=== PATIENT | female | born 1950 | race Caucasian/White ===

== ENCOUNTER 2019-08-21 16:46 | Inpatient (IN) | payer MEDICARE, BC ==
--- NOTE | 2019-08-21 18:24 | PCM.HP.2 ---
H&P History of Present Illness - General Date of Service: 08/21/19 Admit Problem/Dx: Admission Diagnosis/Problem Admission Diagnosis/Problem Pneumonia Source of Information: Patient History Limitations: Reports: No Limitations - History of Present Illness Initial Comments - Free Text/Narative: Silvia is a 68-year-old female was seen by Crista Caballero at the clinic yesterday with a cough and fever. She was well until last Saturday when she developed fever sudden onset,along with chills and cough. Yesterday she tested positive for influenza A. She was also mildly hypoxic. This evening she continues to have a dry paroxysmal cough, associated with shortness of breath hypoxia but no fever. A chest x-ray obtained yesterday showed right lower lobe infiltrate. Silvia has a history of obstructive sleep apnea, obesity, depression, May Thurner syndrome, and pulmonary fibrosis. She is on long-term anticoagulation. low back pain Pain Score (Numeric/FACES): 4 H&P Review of Systems - Review of Systems: Review Of Systems: Comprehensive ROS is negative, except as noted in HPI. Exam - Exam Exam: See Below - Vital Signs Vital Signs: Last Vital Signs Temp 98.6 F 08/21/19 17:41 Pulse 88 08/21/19 17:41 Resp 14 08/21/19 17:41 BP 130/77 08/21/19 17:41 Pulse Ox 93 L 08/21/19 17:41 Weight: 107.365 kg - Exam Quality Assessment: Supplemental Oxygen General: Mild Distress HEENT: PERRLA, Hearing Intact, Mucosa Moist & [place], Nares Patent, Normal Nasal Septum, Posterior Pharynx Clear, Conjunctiva Clear, EOMI, EACs Clear, TMs Clear Neck: Supple, Trachea Midline, 2 Lungs: Crackles Cardiovascular: Regular Rate, Regular Rhythm GI/Abdominal Exam: Normal Bowel Sounds, Soft, Non-Tender, No Organomegaly, No Distention, No Abnormal Bruit, No Mass, Pelvis Stable (Female) Exam: Deferred Rectal (Female) Exam: Deferred Back Exam: Normal Inspection, Full Range of Motion, NT Extremities: Normal Inspection, Normal Range of Motion, Non-Tender, No Pedal Edema, Normal Capillary Refill Skin: Warm, Dry, Intact Neurological: Cranial Nerves Intact, Reflexes Equal Bilateral Neuro Extensive - Mental Status: Alert, Oriented x3, Normal Mood/Affect, Normal Cognition Neuro Extensive - Motor, Sensory, Reflexes: CN II-XII Intact, Normal Gait, Normal Reflexes Psychiatric: Alert, Normal Affect, Normal Mood Sepsis Event Note - Evaluation Sepsis Screening Result: No Definite Risk - Focused Exam Vital Signs: Vital Signs Temp Pulse Resp BP Pulse Ox 08/21/19 17:41 98.6 F 88 14 130/77 93 L Date Exam was Performed: 08/21/19 Time Exam was Performed: 18:17 - Problem List (1) CAP (community acquired pneumonia) SNOMED Code(s): 200417169 ICD Code: J18.9 - PNEUMONIA, UNSPECIFIED ORGANISM Status: Acute Current Visit: Yes Qualifiers: Lung location: unspecified part of lung (2) Influenza A SNOMED Code(s): 998946007 ICD Code: J10.1 - FLU DUE TO OTH IDENT INFLUENZA VIRUS W OTH RESP MANIFEST Status: Acute Current Visit: Yes (3) Pulmonary fibrosis SNOMED Code(s): 91158010 ICD Code: J84.10 - PULMONARY FIBROSIS, UNSPECIFIED Status: Acute Current Visit: Yes (4) Obesity SNOMED Code(s): 940742692, 729750281 ICD Code: E66.9 - OBESITY, UNSPECIFIED Status: Acute Current Visit: Yes Qualifiers: Obesity type: due to excess calories (5) GEOVANI (obstructive sleep apnea) SNOMED Code(s): 23647064 ICD Code: G47.33 - OBSTRUCTIVE SLEEP APNEA (ADULT) (PEDIATRIC) Status: Acute Current Visit: Yes (6) May-Thurner syndrome SNOMED Code(s): 122744909 ICD Code: I87.1 - COMPRESSION OF VEIN Status: Acute Current Visit: Yes (7) Chronic back pain SNOMED Code(s): 202034444 ICD Code: M54.9 - DORSALGIA, UNSPECIFIED; G89.29 - OTHER CHRONIC PAIN Status: Acute Current Visit: Yes Qualifiers: Back pain location: low back pain Problem List Initiated/Reviewed/Updated: Yes Orders Last 24hrs: Active Orders 24 hr Category Date Time Status Admission Status [Patient Status] [ADT] Routine ADT 08/21/19 16:52 Active Antiembolic Devices [RC] .Routine Care 08/21/19 17:41 Active Height and Weight [RC] DAILY Care 08/21/19 17:41 Active Intake and Output [RC] QSHIFT Care 08/21/19 17:41 Active Oxygen Therapy [RC] PRN Care 08/21/19 17:41 Active RT Aerosol Therapy [RC] ASDIRECTED Care 08/21/19 17:43 Active Up With Assistance [RC] ASDIRECTED Care 08/21/19 17:41 Active VTE/DVT Education [RC] Per Unit Routine Care 08/21/19 17:41 Active Vital Signs [RC] Q8H Care 08/21/19 17:41 Active Regular Diet [DIET] Diet 08/21/19 Breakfast Active Chest 2V [CR] AM Exams 08/22/19 05:11 Ordered BASIC METABOLIC PANEL,BMP [CHEM] AM Lab 08/22/19 05:11 Ordered CBC WITH AUTO DIFF [HEME] AM Lab 08/22/19 05:11 Ordered CBC WITH AUTO DIFF [HEME] Stat Lab 08/21/19 17:41 Ordered COMPREHENSIVE METABOLIC PN,CMP [CHEM] Stat Lab 08/21/19 17:41 Ordered CULTURE BLOOD [BC] Urgent Lab 08/21/19 17:43 Ordered CULTURE BLOOD [BC] Urgent Lab 08/21/19 17:43 Ordered CULTURE SPUTUM + SMEAR [RM] Stat Lab 08/21/19 17:41 Ordered PRO B-TYPE NATRIUR PEPT,BNPPRO [CHEM] Stat Lab 08/21/19 17:41 Ordered Albuterol/Ipratropium [DuoNeb 3.0-0.5 MG/3 ML] Med 08/21/19 21:00 Ordered 3 ml NEB QIDRT Azithromycin [Zithromax] 500 mg Med 08/21/19 17:45 Pending Sodium Chloride 0.9% [Normal Saline (AdvBag)] 250 ml IV Q24H Sodium Chloride 0.9% [Saline Flush] Med 08/21/19 17:41 Ordered 10 ml FLUSH ASDIRECTED PRN cefTRIAXone [Rocephin] 1 gm Med 08/21/19 17:45 Ordered Sodium Chloride 0.9% [Normal Saline] 50 ml IV Q24H methylPREDNISolone Sod Succ [Solu-MEDROL] Med 08/21/19 17:45 Ordered 125 mg IVPUSH Q8H Blood Culture x2 Reflex Set [OM.PC] Urgent Oth 08/21/19 17:41 Ordered Peripheral IV Insertion Adult [OM.PC] Routine Oth 08/21/19 17:41 Ordered Sequential Compression Device [OM.PC] Per Unit Routine Oth 08/21/19 17:41 Ordered Resuscitation Status Routine Resus Stat 08/21/19 17:41 Ordered Medication Orders Albuterol/Ipratropium (Duoneb 3.0-0.5 Mg/3 Ml) 3 ml NEB QIDRT RACHELLE Azithromycin 500 mg/ Sodium (Chloride) 250 mls @ 250 mls/hr IV Q24H RACHELLE Ceftriaxone Sodium 1 gm/ (Sodium Chloride) 50 mls @ 200 mls/hr IV Q24H RACHELLE Methylprednisolone Sodium Succinate (Solu-Medrol) 125 mg IVPUSH Q8H RACHELLE Sodium Chloride (Saline Flush) 10 ml FLUSH ASDIRECTED PRN PRN Reason: Keep Vein Open Assessment/Plan Comment:: I will start the patient on Tessalone Pearles, prednisone azithromycin seen Rocephin. I've also started the Pitocin going to help the cough. And we'll resume home medications. Repeat labs in the morning including a chest x-ray EKG and BNP.
[2019-08-21] MEDS: methylPREDNISolone Sodium Succinate 125 MG/2 ML SDV IVPUSH SCH (20:08)
[2019-08-21] MEDS: Sodium Chloride 0.9% 10 ML Syringe FLUSH PRN ×3 (20:08→22:40)
[2019-08-21] MEDS: Azithromycin 500 MG in Sodium Chloride 0.9% 250 ML IV SCH (20:25)
[2019-08-21] MEDS: guaiFENesin/Dextromethorphan 100-10 MG/5 ML Soln 5 ML Cup PO PRN (21:00)
[2019-08-21] MEDS: Benzonatate 100 MG Cap PO SCH (21:10)
[2019-08-21] MEDS: Albuterol/Ipratropium 3.0-0.5 MG/3 ML Neb Soln NEB SCH (21:10)
[2019-08-21] MEDS: cefTRIAXone 1 GM in Sodium Chloride 0.9% 50 ML IV SCH (21:56)
[2019-08-22] MEDS ORDERED: Warfarin 3 MG Tab PO ONE (00:26)
[2019-08-22] MEDS ORDERED: Montelukast 10 MG Tab PO ONE ×2 (00:27→11:45)
[2019-08-22] MEDS ORDERED: Simethicone 80 MG Tab.Chew PO STA (00:28)
[2019-08-22] MEDS ORDERED: Melatonin 3 MG Tab PO STA (00:28)
[2019-08-22] MEDS ORDERED: Docusate Sodium 100 MG Cap PO ONE (00:29)
[2019-08-22] MEDS: Verapamil 180 MG Tab.ER PO SCH ×3 (01:10→20:52)
[2019-08-22] MEDS: guaiFENesin/Dextromethorphan 100-10 MG/5 ML Soln 5 ML Cup PO PRN ×4 (01:21→16:41)
[2019-08-22] MEDS: methylPREDNISolone Sodium Succinate 125 MG/2 ML SDV IVPUSH SCH ×3 (04:11→20:02)
[2019-08-22] MEDS: Sodium Chloride 0.9% 10 ML Syringe FLUSH PRN ×4 (04:12→20:56)
[2019-08-22] MEDS: Albuterol/Ipratropium 3.0-0.5 MG/3 ML Neb Soln NEB SCH ×3 (07:42→15:03)
--- NOTE | 2019-08-22 09:40 | PCM.PN ---
- General Info Date of Service: 08/22/19 Subjective Update: Complains of a harsh cough.Unable to sleep Functional Status: Reports: Pain Controlled - Review of Systems General: Reports: No Symptoms HEENT: Reports: No Symptoms Pulmonary: Reports: Pleuritic Chest Pain, Cough, Sputum, Wheezing Cardiovascular: Reports: No Symptoms Gastrointestinal: Reports: No Symptoms Genitourinary: Reports: No Symptoms - Patient Data Vitals - Most Recent: Last Vital Signs Temp 97.7 F 08/22/19 01:25 Pulse 84 08/22/19 01:25 Resp 18 08/22/19 01:25 BP 144/79 H 08/22/19 01:25 Pulse Ox 88 L 08/22/19 01:25 Weight - Most Recent: 107.365 kg I&O - Last 24 Hours: Intake & Output 08/21/19 08/22/19 08/22/19 22:59 06:59 14:59 Intake Total 600 Balance 600 Lab Results Last 24 Hours: Laboratory Results - last 24 hr 08/21/19 08/21/19 08/21/19 Range/Units 18:15 18:15 18:15 WBC 8.3 (4.5-12.0) X10-3/uL RBC 5.83 H (3.23-5.20) x10(6)uL Hgb 17.0 H (11.5-15.5) g/dL Hct 53.6 H (30.0-51.3) % MCV 92.0 (80-96) fL MCH 29.1 (27.7-33.6) pg MCHC 31.7 L (32.2-35.4) g/dL RDW 14.7 (11.5-15.5) % Plt Count 249 (125-369) X10(3)uL MPV 7.9 (7.4-10.4) fL Neut % (Auto) 82.1 H (46-82) % Lymph % (Auto) 12.5 L (13-37) % Pierce % (Auto) 3.7 L (4-12) % Eos % (Auto) 0 L (1.0-5.0) % Baso % (Auto) 2 (0-2) % Neut # (Auto) 6.9 (1.6-8.3) # Lymph # (Auto) 1.0 (0.6-5.0) # Pierce # (Auto) 0.3 (0.0-1.3) # Eos # (Auto) 0.0 (0.0-0.8) # Baso # (Auto) 0.1 (0.0-0.2) # PT (8.7-11.1) INR (0.89-1.13) Sodium 141 (135-145) mmol/L Potassium 4.4 (3.5-5.3) mmol/L Chloride 99 L (100-110) mmol/L Carbon Dioxide 32 (21-32) mmol/L BUN 23 H (7-18) mg/dL Creatinine 1.0 (0.55-1.02) mg/dL Est Cr Clr Drug Dosing 52.81 mL/min Estimated GFR (MDRD) 55 L (>60) BUN/Creatinine Ratio 23.0 H (9-20) Glucose 125 H (80-116) mg/dL Calcium 9.3 (8.6-10.2) mg/dL Total Bilirubin 0.3 (0.1-1.3) mg/dL AST 28 H (5-25) IU/L ALT 32 (12-36) U/L Alkaline Phosphatase 99 (56-112) IU/L NT-Pro-B Natriuret Pep 143 H (<=125) pg/mL Total Protein 8.0 (6.0-8.0) g/dL Albumin 3.5 (3.2-4.6) g/dL Globulin 4.5 g/dL Albumin/Globulin Ratio 0.8 08/22/19 08/22/19 08/22/19 Range/Units 06:05 06:05 06:05 WBC 6.6 (4.5-12.0) X10-3/uL RBC 5.83 H (3.23-5.20) x10(6)uL Hgb 17.0 H (11.5-15.5) g/dL Hct 53.5 H (30.0-51.3) % MCV 91.8 (80-96) fL MCH 29.2 (27.7-33.6) pg MCHC 31.8 L (32.2-35.4) g/dL RDW 14.4 (11.5-15.5) % Plt Count 252 (125-369) X10(3)uL MPV 7.5 (7.4-10.4) fL Neut % (Auto) 83.3 H (46-82) % Lymph % (Auto) 13.7 (13-37) % Pierce % (Auto) 1.3 L (4-12) % Eos % (Auto) 0 L (1.0-5.0) % Baso % (Auto) 2 (0-2) % Neut # (Auto) 5.5 (1.6-8.3) # Lymph # (Auto) 0.9 (0.6-5.0) # Pierce # (Auto) 0.1 (0.0-1.3) # Eos # (Auto) 0.0 (0.0-0.8) # Baso # (Auto) 0.1 (0.0-0.2) # PT 31.2 H (8.7-11.1) INR 3.26 H (0.89-1.13) Sodium 140 (135-145) mmol/L Potassium 4.7 (3.5-5.3) mmol/L Chloride 100 (100-110) mmol/L Carbon Dioxide 34 H (21-32) mmol/L BUN 23 H (7-18) mg/dL Creatinine 0.8 (0.55-1.02) mg/dL Est Cr Clr Drug Dosing 66.01 mL/min Estimated GFR (MDRD) > 60 (>60) BUN/Creatinine Ratio 28.8 H (9-20) Glucose 169 H (80-116) mg/dL Calcium 9.3 (8.6-10.2) mg/dL Total Bilirubin (0.1-1.3) mg/dL AST (5-25) IU/L ALT (12-36) U/L Alkaline Phosphatase (56-112) IU/L NT-Pro-B Natriuret Pep (<=125) pg/mL Total Protein (6.0-8.0) g/dL Albumin (3.2-4.6) g/dL Globulin g/dL Albumin/Globulin Ratio Howard Results Last 24 Hours: Microbiology 08/21/19 20:30 Gram Stain - Final Sputum - Expectorated Med Orders - Current: Current Medications Acetaminophen (Tylenol Arthritis Pain) 650 mg PO Q8H PRN PRN Reason: Shortness of Breath Albuterol/Ipratropium (Duoneb 3.0-0.5 Mg/3 Ml) 3 ml NEB QIDRT [facility] Last Admin: 08/22/19 07:42 Dose: 3 ml Benzonatate (Tessalon Perles) 200 mg PO TID [facility] Last Admin: 08/21/19 21:10 Dose: 200 mg Betamethasone Dipropionate (Diprolene Af 0.05% Crm) gm TOP TID [facility] Budesonide (Pulmicort) mg INH TID RACHELLE Celecoxib (Celebrex) 100 mg PO DAILY [facility] Clobetasol Propionate (Clobetasol Propionate 0.05%) gm TOP TID RACHELLE Docusate Sodium (Dok) 500 mg PO DAILY [facility] Fluticasone Propionate (Flonase) gm NASBOTH DAILY [facility] Furosemide (Lasix) 20 mg PO DAILY [facility] Guaifenesin/Phenylephrine HCl (Robitussin Dm) 10 ml PO Q4H PRN PRN Reason: Cough Last Admin: 08/22/19 07:42 Dose: 10 ml Azithromycin 500 mg/ Sodium (Chloride) 250 mls @ 250 mls/hr IV Q24H [facility] Last Admin: 08/21/19 20:25 Dose: 250 mls/hr Ceftriaxone Sodium 1 gm/ (Sodium Chloride) 50 mls @ 200 mls/hr IV Q24H [facility] Last Admin: 08/21/19 21:56 Dose: 200 mls/hr Methylprednisolone Sodium Succinate (Solu-Medrol) 125 mg IVPUSH Q8H [facility] Last Admin: 08/22/19 04:11 Dose: 125 mg Montelukast Sodium (Singulair) 10 mg PO DAILY [facility] Multivitamins/Minerals/Vitamin C (Tab-A-Tiffanie) 1 tab PO DAILY [facility] Non-Formulary Medication (Estradiol [Estrace 0.01% Vaginal Crm]) 1 gram VAG ASDIRECTED [facility] Non-Formulary Medication (L.Acidoph,Paracasei, B.Lactis [Probiotic]) 1 tab PO DAILY [facility] Non-Formulary Medication (Lansoprazole [Prevacid]) 30 mg PO DAILY [facility] Non-Formulary Medication (Levocetirizine Dihydrochloride [Levocetirizine Dihydrochloride]) 5 mg PO DAILY [facility] Non-Formulary Medication (Melatonin [Melatonin]) 5 mg PO BEDTIME [facility] Non-Formulary Medication (Simethicone [Gas Relief]) 125 mg CHEW ASDIRECTED PRN PRN Reason: Gas Non-Formulary Medication (Verapamil [Verelan]) 180 mg PO DAILY [facility] Sodium Chloride (Saline Flush) 10 ml FLUSH ASDIRECTED PRN PRN Reason: Keep Vein Open Last Admin: 08/22/19 04:12 Dose: 10 ml Spironolactone (Aldactone) 25 mg PO TID [facility] Verapamil HCl (Covera-Hs) 180 mg PO DAILY [facility] Last Admin: 08/22/19 01:10 Dose: 180 mg Warfarin Sodium (Coumadin) 3 mg PO DAILY [facility] Discontinued Medications Docusate Sodium (Colace) 200 mg PO ONETIME ONE Stop: 08/22/19 00:30 Last Admin: 08/22/19 01:10 Dose: 200 mg Melatonin (Melatonin) 6 mg PO NOW STA Stop: 08/22/19 00:29 Last Admin: 08/22/19 01:09 Dose: 6 mg Montelukast Sodium (Singulair) 10 mg PO ONETIME ONE Stop: 08/22/19 00:28 Last Admin: 08/22/19 01:09 Dose: 10 mg Simethicone (Simethicone) 120 mg PO NOW STA Stop: 08/22/19 00:29 Last Admin: 08/22/19 01:09 Dose: 120 mg Warfarin Sodium (Coumadin) 3 mg PO ONETIME ONE Stop: 08/22/19 00:27 Last Admin: 08/22/19 01:08 Dose: 3 mg - Exam General: Alert HEENT: Pupils Equal Lungs: Rales, Rhonchi Cardiovascular: Tachycardia GI/Abdominal Exam: Normal Bowel Sounds Sepsis Event Note - Evaluation Sepsis Screening Result: No Definite Risk - Focused Exam Vital Signs: Vital Signs Temp Pulse Resp BP Pulse Ox Pulse Ox 08/22/19 01:25 97.7 F 84 18 144/79 H 88 L 88 L Date Exam was Performed: 08/22/19 Time Exam was Performed: 09:37 - Problem List & Annotations (1) CAP (community acquired pneumonia) SNOMED Code(s): 546108307 Code(s): J18.9 - PNEUMONIA, UNSPECIFIED ORGANISM Status: Acute Current Visit: Yes Qualifiers: Lung location: unspecified part of lung (2) Influenza A SNOMED Code(s): 875323186 Code(s): J10.1 - FLU DUE TO OTH IDENT INFLUENZA VIRUS W OTH RESP MANIFEST Status: Acute Current Visit: Yes (3) Pulmonary fibrosis SNOMED Code(s): 32872549 Code(s): J84.10 - PULMONARY FIBROSIS, UNSPECIFIED Status: Acute Current Visit: Yes (4) Obesity SNOMED Code(s): 460104808, 018626221 Code(s): E66.9 - OBESITY, UNSPECIFIED Status: Acute Current Visit: Yes Qualifiers: Obesity type: due to excess calories (5) GEOVANI (obstructive sleep apnea) SNOMED Code(s): 95798925 Code(s): G47.33 - OBSTRUCTIVE SLEEP APNEA (ADULT) (PEDIATRIC) Status: Acute Current Visit: Yes (6) May-Thurner syndrome SNOMED Code(s): 214908442 Code(s): I87.1 - COMPRESSION OF VEIN Status: Acute Current Visit: Yes (7) Chronic back pain SNOMED Code(s): 381564452 Code(s): M54.9 - DORSALGIA, UNSPECIFIED; G89.29 - OTHER CHRONIC PAIN Status : Acute Current Visit: Yes Qualifiers: Back pain location: low back pain - Problem List Review Problem List Initiated/Reviewed/Updated: Yes - My Orders Last 24 Hours: My Active Orders 08/21/19 16:52 Admission Status [Patient Status] [ADT] Routine 08/21/19 17:41 Antiembolic Devices [RC] .Routine Height and Weight [RC] DAILY Oxygen Therapy [RC] PRN Up With Assistance [RC] ASDIRECTED VTE/DVT Education [RC] Per Unit Routine Vital Signs [RC] Q8H Sodium Chloride 0.9% [Saline Flush] 10 ml FLUSH ASDIRECTED PRN Blood Culture x2 Reflex Set [OM.PC] Urgent Peripheral IV Insertion Adult [OM.PC] Routine Sequential Compression Device [OM.PC] Per Unit Routine Resuscitation Status Routine 08/21/19 17:43 RT Aerosol Therapy [RC] ASDIRECTED 08/21/19 18:00 Azithromycin [Zithromax] 500 mg Sodium Chloride 0.9% [Normal Saline (AdvBag)] 250 ml IV Q24H 08/21/19 18:15 CULTURE BLOOD [BC] Urgent 08/21/19 18:20 CULTURE BLOOD [BC] Urgent 08/21/19 18:26 Dextromethorphan/guaiFENesin [Robitussin DM] 10 ml PO Q4H PRN 08/21/19 20:00 cefTRIAXone [Rocephin] 1 gm Sodium Chloride 0.9% [Normal Saline] 50 ml IV Q24H methylPREDNISolone Sod Succ [Solu-MEDROL] 125 mg IVPUSH Q8H 08/21/19 20:30 CULTURE SPUTUM + SMEAR [RM] Stat 08/21/19 21:00 Albuterol/Ipratropium [DuoNeb 3.0-0.5 MG/3 ML] 3 ml NEB QIDRT Benzonatate [Tessalon Perles] 200 mg PO TID 08/22/19 05:11 Chest 2V [CR] AM 08/22/19 09:34 Acetaminophen [Tylenol Arthritis Pain] 650 mg PO Q8H PRN Simethicone [Gas Relief] 125 mg CHEW ASDIRECTED PRN 08/22/19 09:45 estradioL [Estrace 0.01% Vaginal Crm] 1 gram VAG ASDIRECTED 08/22/19 14:00 Betamethasone Dipropionate [Diprolene AF 0.05% Crm] 1 applic TOP TID Budesonide [Pulmicort] 1 ampule INH TID Clobetasol [Clobetasol Propionate 0.05%] 1 applic TOP TID Spironolactone [Aldactone] 25 mg PO TID 08/22/19 21:00 Melatonin [Melatonin] 5 mg PO BEDTIME 08/23/19 09:00 Celecoxib [CeleBREX] 100 mg PO DAILY Docusate Sodium [Dok] 500 mg PO DAILY Fluticasone Propionate [Flonase] 2 spray NASBOTH DAILY Furosemide [Lasix] 20 mg PO DAILY L.acidoph,Paracasei, B.lactis [Probiotic] 1 tab PO DAILY Lansoprazole [Prevacid] 30 mg PO DAILY Levocetirizine Dihydrochloride [Levocetirizine Dihydrochloride] 5 mg PO DAILY Montelukast [Singulair] 10 mg PO DAILY Multivitamins [Tab-A-Tiffanie] 1 tab PO DAILY Verapamil [Verelan] 180 mg PO DAILY Warfarin [Coumadin] 3 mg PO DAILY - Plan Plan:: Resume Meds as ordered.CXR still shows right side infiltrate
[2019-08-22] MEDS ORDERED: ESTRADIOL VAG SCH (09:45)
[2019-08-22] MEDS: Lactobacillus Rhamnosus GG (Probiotic) Cap PO SCH (11:26)
[2019-08-22] MEDS: Benzonatate 100 MG Cap PO SCH ×3 (11:26→20:54)
[2019-08-22] MEDS: LEVOCETIRIZINE 5 MG PO SCH (11:27)
[2019-08-22] MEDS ORDERED: Multivitamin Tab PO ONE (11:45)
[2019-08-22] MEDS ORDERED: Furosemide 20 MG Tab PO ONE (11:45)
[2019-08-22] MEDS ORDERED: Fluticasone Propionate Nasal Spray 16 GM Bottle NASBOTH ONE (11:45)
[2019-08-22] MEDS ORDERED: Celecoxib 100 MG Cap PO ONE (11:45)
[2019-08-22] MEDS ORDERED: Pantoprazole 40 MG Tab.CR PO ONE (12:00)
[2019-08-22] MEDS: Budesonide 0.5 MG/2 ML Neb Susp INH SCH ×3 (12:11→20:54)
[2019-08-22] MEDS: CLOBETASOL 0.05% TOP SCH ×2 (12:12→20:53)
[2019-08-22] MEDS: BETAMETHASONE DIPROPIONATE 0.05% TOP SCH ×2 (12:12→20:53)
[2019-08-22] MEDS: Verapamil 180 MG Tab.ER PO ONE ×2 (12:14→12:16)
[2019-08-22] MEDS: Docusate Sodium 250 MG Cap PO ONE ×2 (12:14→13:12)
[2019-08-22] MEDS ORDERED: Spironolactone 25 MG Tab PO SCH (14:00)
[2019-08-22] MEDS: Acetaminophen 650 MG Tab.ER PO PRN (14:14)
[2019-08-22] MEDS ORDERED: Budesonide 0.5 MG/2 ML Neb Susp INH SCH (15:00)
[2019-08-22] MEDS ORDERED: Warfarin Sliding Scale PO SCH (16:00)
[2019-08-22] MEDS: Codeine/guaiFENesin 100-10 MG/5 ML Syrup 5 ML Cup PO PRN (17:26)
[2019-08-22] MEDS: Azithromycin 500 MG in Sodium Chloride 0.9% 250 ML IV SCH (18:32)
[2019-08-22] MEDS: cefTRIAXone 1 GM in Sodium Chloride 0.9% 50 ML IV SCH (20:02)
[2019-08-22] MEDS: Levalbuterol HCl 1.25 MG/3 ML Neb NEB SCH (20:36)
[2019-08-22] MEDS: Docusate Sodium 250 MG Cap PO SCH (20:52)
[2019-08-22] MEDS: Spironolactone 25 MG Tab PO SCH (20:52)
[2019-08-22] MEDS: Montelukast 10 MG Tab PO SCH (20:54)
[2019-08-22] MEDS ORDERED: BETAMETHASONE DIPROPIONATE 0.05% TOP SCH (21:00)
[2019-08-22] MEDS ORDERED: CLOBETASOL 0.05% TOP SCH (21:00)
[2019-08-23] MEDS: Levalbuterol HCl 1.25 MG/3 ML Neb NEB SCH ×4 (00:29→10:42)
[2019-08-23] MEDS: Codeine/guaiFENesin 100-10 MG/5 ML Syrup 5 ML Cup PO PRN ×4 (02:34→22:22)
[2019-08-23] MEDS: methylPREDNISolone Sodium Succinate 125 MG/2 ML SDV IVPUSH SCH ×3 (03:03→19:48)
[2019-08-23] MEDS: Sodium Chloride 0.9% 10 ML Syringe FLUSH PRN ×4 (03:07→20:28)
[2019-08-23] MEDS ORDERED: Montelukast 10 MG Tab PO SCH (09:00)
[2019-08-23] MEDS ORDERED: Docusate Sodium 250 MG Cap PO SCH ×2 (09:00→21:00)
[2019-08-23] MEDS ORDERED: Verapamil 180 MG Tab.ER PO SCH (09:00)
--- NOTE | 2019-08-23 09:14 | PCM.PN ---
- General Info Date of Service: 08/23/19 Subjective Update: Complains of a harsh cough.Unable to sleep well. Overall feels better Functional Status: Reports: Pain Controlled - Review of Systems General: Reports: No Symptoms Pulmonary: Reports: Shortness of Breath, Pleuritic Chest Pain, Cough Cardiovascular: Reports: No Symptoms Gastrointestinal: Reports: No Symptoms Genitourinary: Reports: No Symptoms - Patient Data Vitals - Most Recent: Last Vital Signs Temp 97.8 F 08/23/19 00:00 Pulse 100 08/23/19 00:00 Resp 20 08/23/19 00:00 BP 134/78 08/23/19 00:00 Pulse Ox 90 L 08/23/19 00:00 Weight - Most Recent: 107.365 kg I&O - Last 24 Hours: Intake & Output 08/22/19 08/23/19 08/23/19 22:59 06:59 14:59 Intake Total 300 Balance 300 Lab Results Last 24 Hours: Laboratory Results - last 24 hr 08/23/19 Range/Units 06:07 PT 41.5 H* (8.7-11.1) INR 4.34 H* (0.89-1.13) Howard Results Last 24 Hours: Microbiology 08/21/19 18:20 Aerobic Blood Culture - Preliminary Blood - Venous - Lab Draw NO GROWTH AFTER 1 DAY Anaerobic Blood Culture - Preliminary NO GROWTH AFTER 1 DAY 08/21/19 18:15 Aerobic Blood Culture - Preliminary Blood - Venous NO GROWTH AFTER 1 DAY Anaerobic Blood Culture - Preliminary NO GROWTH AFTER 1 DAY 08/21/19 20:30 Gram Stain - Final Sputum - Expectorated Sputum Culture - Preliminary Med Orders - Current: Current Medications Acetaminophen (Tylenol Arthritis Pain) 650 mg PO Q8H PRN PRN Reason: Shortness of Breath Last Admin: 08/22/19 14:14 Dose: 650 mg Benzonatate (Tessalon Perles) 200 mg PO TID [facility] Last Admin: 08/22/19 20:54 Dose: 200 mg Budesonide (Pulmicort) 0.5 mg INH TIDRT [facility] Last Admin: 08/22/19 20:54 Dose: 0.5 mg Celecoxib (Celebrex) 100 mg PO DAILY [facility] Docusate Sodium (Dok) 500 mg PO BEDTIME [facility] Last Admin: 08/22/19 20:52 Dose: 500 mg Fluticasone Propionate (Flonase) 0 gm NASBOTH DAILY [facility] Furosemide (Lasix) 20 mg PO DAILY [facility] Guaifenesin/Codeine Phosphate (Robitussin Ac) 10 ml PO Q6H PRN PRN Reason: Cough Last Admin: 08/23/19 02:34 Dose: 10 ml Azithromycin 500 mg/ Sodium (Chloride) 250 mls @ 250 mls/hr IV Q24H [facility] Last Admin: 08/22/19 18:32 Dose: 250 mls/hr Ceftriaxone Sodium 1 gm/ (Sodium Chloride) 50 mls @ 200 mls/hr IV Q24H [facility] Last Admin: 08/22/19 20:02 Dose: 200 mls/hr Lactobacillus Rhamnosus (Culturelle) 1 cap PO DAILY [facility] Last Admin: 08/22/19 11:26 Dose: 1 cap Levalbuterol HCl (Xopenex) 1.25 mg NEB Q4HRRT PRN PRN Reason: Wheezing Methylprednisolone Sodium Succinate (Solu-Medrol) 125 mg IVPUSH Q8H [facility] Last Admin: 08/23/19 03:03 Dose: 125 mg Montelukast Sodium (Singulair) 10 mg PO BEDTIME [facility] Last Admin: 08/22/19 20:54 Dose: 10 mg Multivitamins/Minerals/Vitamin C (Tab-A-Tiffanie) 1 tab PO DAILY [facility] Non-Formulary Medication (Estradiol [Estrace 0.01% Vaginal Crm]) 1 gram VAG ASDIRECTED [facility] Pantoprazole Sodium (Protonix) 40 mg PO ACBREAKFAST [facility] Levocetirizine 5 Mg (Tab*Pt Own Med*) 0 each PO DAILY [facility] Last Admin: 08/22/19 11:27 Dose: 5 each (Melatonin [ Melatonin] 5 Mg)*Pt Own* 0 each PO BEDTIME [facility] Last Admin: 08/22/19 20:53 Dose: 1 each (Simethicone [Gas Relief] 125 Mg)*Pt Own Med* 0 each PO ASDIRECTED PRN PRN Reason: GAS Last Admin: 08/22/19 21:00 Dose: 1 each Betamethasone Dipropionate 0.05% Crm 15 Gm Tube*Pt Own Med* 0 each TOP BID [facility] Last Admin: 08/22/19 20:53 Dose: Not Given Clobetasol 0.05% Crm 45 Gm Tube*Pt Own Med* 0 each TOP BID [facility] Last Admin: 08/22/19 20:53 Dose: Not Given Senna/Docusate Sodium (Senna Plus) 1 tab PO BID PRN PRN Reason: Constipation Sodium Chloride (Saline Flush) 10 ml FLUSH ASDIRECTED PRN PRN Reason: Keep Vein Open Last Admin: 08/23/19 03:07 Dose: 10 ml Spironolactone (Aldactone) 25 mg PO BID [facility] Last Admin: 08/22/19 20:52 Dose: 25 mg Verapamil HCl (Covera-Hs) 180 mg PO BEDTIME [facility] Last Admin: 08/22/19 20:52 Dose: 180 mg Warfarin Sodium (Coumadin Sliding Scale) 1 each PO 1600 [facility] Discontinued Medications Albuterol/Ipratropium (Duoneb 3.0-0.5 Mg/3 Ml) 3 ml NEB QIDRT [facility] Last Admin: 08/22/19 15:03 Dose: 3 ml Budesonide (Pulmicort) 0.5 mg INH TIDRT [facility] Celecoxib (Celebrex) 100 mg PO ONETIME ONE Stop: 08/22/19 11:46 Last Admin: 08/22/19 12:10 Dose: 100 mg Clobetasol Propionate (Clobetasol Propionate 0.05%) 0 gm TOP BID [facility] Docusate Sodium (Colace) 200 mg PO ONETIME ONE Stop: 08/22/19 00:30 Last Admin: 08/22/19 01:10 Dose: 200 mg Docusate Sodium (Dok) 500 mg PO DAILY [facility] Docusate Sodium (Dok) 500 mg PO ONETIME ONE Stop: 08/22/19 11:46 Last Admin: 08/22/19 13:12 Dose: Not Given Docusate Sodium (Dok) 500 mg PO BEDTIME [facility] Fluticasone Propionate (Flonase) 0 gm NASBOTH ONETIME ONE Stop: 08/22/19 11:46 Last Admin: 08/22/19 12:11 Dose: 2 spray Furosemide (Lasix) 20 mg PO ONETIME ONE Stop: 08/22/19 11:46 Last Admin: 08/22/19 12:11 Dose: 20 mg Guaifenesin/Phenylephrine HCl (Robitussin Dm) 10 ml PO Q4H PRN PRN Reason: Cough Last Admin: 08/22/19 16:41 Dose: 10 ml Levalbuterol HCl (Xopenex) 1.25 mg NEB Q4H [facility] Last Admin: 08/23/19 03:36 Dose: Not Given Melatonin (Melatonin) 6 mg PO NOW STA Stop: 08/22/19 00:29 Last Admin: 08/22/19 01:09 Dose: 6 mg Montelukast Sodium (Singulair) 10 mg PO ONETIME ONE Stop: 08/22/19 00:28 Last Admin: 08/22/19 01:09 Dose: 10 mg Montelukast Sodium (Singulair) 10 mg PO DAILY [facility] Montelukast Sodium (Singulair) 10 mg PO ONETIME ONE Stop: 08/22/19 11:46 Last Admin: 08/22/19 12:11 Dose: 10 mg Multivitamins/Minerals/Vitamin C (Tab-A-Tiffanie) 1 tab PO ONETIME ONE Stop: 08/22/19 11:46 Last Admin: 08/22/19 12:11 Dose: 1 tab Pantoprazole Sodium (Protonix) 40 mg PO ONETIME ONE Stop: 08/22/19 12:01 Last Admin: 08/22/19 12:10 Dose: 40 mg Betamethasone Dipropionate 0.05% Crm 15 Gm Tube*Pt Own Med* 0 each TOP BID [facility] Simethicone (Simethicone) 120 mg PO NOW STA Stop: 08/22/19 00:29 Last Admin: 08/22/19 01:09 Dose: 120 mg Spironolactone (Aldactone) 25 mg PO TID [facility] Last Admin: 08/22/19 14:14 Dose: 25 mg Verapamil HCl (Covera-Hs) 180 mg PO DAILY [facility] Last Admin: 08/22/19 13:12 Dose: Not Given Verapamil HCl (Covera-Hs) 180 mg PO DAILY [facility] Verapamil HCl (Covera-Hs) 180 mg PO ONETIME ONE Stop: 08/22/19 11:46 Last Admin: 08/22/19 12:16 Dose: Not Given Warfarin Sodium (Coumadin) 3 mg PO ONETIME ONE Stop: 08/22/19 00:27 Last Admin: 08/22/19 01:08 Dose: 3 mg Warfarin Sodium (Coumadin) 3 mg PO DAILY@1600 [facility] - Exam General: Alert, Oriented HEENT: Pupils Equal Lungs: Crackles, Rales Cardiovascular: Regular Rate GI/Abdominal Exam: Normal Bowel Sounds, Soft Sepsis Event Note - Evaluation Sepsis Screening Result: No Definite Risk - Focused Exam Vital Signs: Vital Signs Temp Pulse Resp BP Pulse Ox 08/23/19 00:00 97.8 F 100 20 134/78 90 L Date Exam was Performed: 08/23/19 Time Exam was Performed: 09:13 - Problem List & Annotations (1) CAP (community acquired pneumonia) SNOMED Code(s): 729596824 Code(s): J18.9 - PNEUMONIA, UNSPECIFIED ORGANISM Status: Acute Current Visit: Yes Qualifiers: Lung location: unspecified part of lung (2) Influenza A SNOMED Code(s): 335263367 Code(s): J10.1 - FLU DUE TO OTH IDENT INFLUENZA VIRUS W OTH RESP MANIFEST Status: Acute Current Visit: Yes (3) Pulmonary fibrosis SNOMED Code(s): 24217239 Code(s): J84.10 - PULMONARY FIBROSIS, UNSPECIFIED Status: Acute Current Visit: Yes (4) Obesity SNOMED Code(s): 264088899, 310540227 Code(s): E66.9 - OBESITY, UNSPECIFIED Status: Acute Current Visit: Yes Qualifiers: Obesity type: due to excess calories (5) GEOVANI (obstructive sleep apnea) SNOMED Code(s): 17845999 Code(s): G47.33 - OBSTRUCTIVE SLEEP APNEA (ADULT) (PEDIATRIC) Status: Acute Current Visit: Yes (6) May-Thurner syndrome SNOMED Code(s): 393008623 Code(s): I87.1 - COMPRESSION OF VEIN Status: Acute Current Visit: Yes (7) Chronic back pain SNOMED Code(s): 306816929 Code(s): M54.9 - DORSALGIA, UNSPECIFIED; G89.29 - OTHER CHRONIC PAIN Status : Acute Current Visit: Yes Qualifiers: Back pain location: low back pain - Problem List Review Problem List Initiated/Reviewed/Updated: Yes - My Orders Last 24 Hours: My Active Orders 08/22/19 09:34 Acetaminophen [Tylenol Arthritis Pain] 650 mg PO Q8H PRN 08/22/19 09:45 estradioL [Estrace 0.01% Vaginal Crm] 1 gram VAG ASDIRECTED 08/22/19 10:45 Lactobacillus Rhamnosus GG [Culturelle] 1 cap PO DAILY 08/22/19 11:00 Patient's Own Medication [Ptom] 0 each PO ASDIRECTED PRN Patient's Own Medication [Ptom] 0 each PO DAILY 08/22/19 11:45 Budesonide [Pulmicort] 0.5 mg INH TIDRT 08/22/19 12:00 Patient's Own Medication [Ptom] 0 each TOP BID Patient's Own Medication [Ptom] 0 each TOP BID 08/22/19 16:00 Warfarin Sliding Scale [Coumadin Sliding Scale] 1 each PO 1600 08/22/19 17:09 Codeine/guaiFENesin [Robitussin AC] 10 ml PO Q6H PRN 08/22/19 21:00 Docusate Sodium [Dok] 500 mg PO BEDTIME Montelukast [Singulair] 10 mg PO BEDTIME Patient's Own Medication [Ptom] 0 each PO BEDTIME Spironolactone [Aldactone] 25 mg PO BID Verapamil [Covera-HS] 180 mg PO BEDTIME 08/23/19 07:30 Pantoprazole [ProTONIX] 40 mg PO ACBREAKFAST 08/23/19 09:00 Celecoxib [CeleBREX] 100 mg PO DAILY Fluticasone Propionate [Flonase] 0 gm NASBOTH DAILY Furosemide [Lasix] 20 mg PO DAILY Multivitamins [Tab-A-Tiffanie] 1 tab PO DAILY 08/23/19 09:11 RT Aerosol Therapy [RC] ASDIRECTED levalbuterol HCL [Xopenex] 1.25 mg NEB Q4HRRT PRN 08/23/19 09:12 Docusate Sodium/Sennosides [Senna Plus] 1 tab PO BID PRN 08/24/19 05:11 INR,PT,PROTHROMBIN TIME [COAG] AM - Plan Plan:: Continue rx for CAP.
[2019-08-23] MEDS: Multivitamin Tab PO SCH (10:03)
[2019-08-23] MEDS: Celecoxib 100 MG Cap PO SCH (10:03)
[2019-08-23] MEDS: Benzonatate 100 MG Cap PO SCH ×3 (10:03→20:21)
[2019-08-23] MEDS: Lactobacillus Rhamnosus GG (Probiotic) Cap PO SCH (10:03)
[2019-08-23] MEDS: Spironolactone 25 MG Tab PO SCH ×2 (10:04→20:20)
[2019-08-23] MEDS: Furosemide 20 MG Tab PO SCH (10:04)
[2019-08-23] MEDS: Acetaminophen 650 MG Tab.ER PO PRN ×2 (10:04→18:29)
[2019-08-23] MEDS: Levalbuterol HCl 1.25 MG/3 ML Neb NEB PRN ×2 (10:05→20:23)
[2019-08-23] MEDS: Fluticasone Propionate Nasal Spray 16 GM Bottle NASBOTH SCH (10:05)
[2019-08-23] MEDS: LEVOCETIRIZINE 5 MG PO SCH (10:06)
[2019-08-23] MEDS: BETAMETHASONE DIPROPIONATE 0.05% TOP SCH ×2 (10:06→20:24)
[2019-08-23] MEDS: CLOBETASOL 0.05% TOP SCH ×2 (10:06→20:24)
[2019-08-23] MEDS: Budesonide 0.5 MG/2 ML Neb Susp INH SCH ×4 (10:07→20:21)
[2019-08-23] MEDS: Pantoprazole 40 MG Tab.CR PO SCH (10:14)
[2019-08-23] MEDS ORDERED: Warfarin 3 MG Tab PO SCH (16:00)
[2019-08-23] MEDS: Azithromycin 500 MG in Sodium Chloride 0.9% 250 ML IV SCH (18:29)
[2019-08-23] MEDS ORDERED: methylPREDNISolone Sodium Succinate 500 MG/4 ML SDV IVPUSH SCH (19:00)
[2019-08-23] MEDS: cefTRIAXone 1 GM in Sodium Chloride 0.9% 50 ML IV SCH (19:49)
[2019-08-23] MEDS: Docusate Sodium 250 MG Cap PO SCH (20:20)
[2019-08-23] MEDS: Verapamil 180 MG Tab.ER PO SCH (20:20)
[2019-08-23] MEDS: Montelukast 10 MG Tab PO SCH (20:21)
[2019-08-24] MEDS: methylPREDNISolone Sodium Succinate 125 MG/2 ML SDV IVPUSH SCH (03:13)
[2019-08-24] MEDS: Sodium Chloride 0.9% 10 ML Syringe FLUSH PRN ×5 (03:18→21:01)
[2019-08-24] MEDS: Levalbuterol HCl 1.25 MG/3 ML Neb NEB PRN (03:26)
[2019-08-24] MEDS: Codeine/guaiFENesin 100-10 MG/5 ML Syrup 5 ML Cup PO PRN ×2 (04:22→14:04)
[2019-08-24] MEDS: Pantoprazole 40 MG Tab.CR PO SCH (06:37)
[2019-08-24] MEDS: Budesonide 0.5 MG/2 ML Neb Susp INH SCH ×3 (06:37→21:07)
--- NOTE | 2019-08-24 08:35 | PCM.PN ---
- General Info Date of Service: 08/24/19 Subjective Update: Still coughing. Silvia Did not sleep well. Functional Status: Reports: Pain Controlled - Review of Systems General: Reports: No Symptoms Pulmonary: Reports: Pleuritic Chest Pain, Cough Cardiovascular: Reports: No Symptoms Psychiatric: Reports: Mood Lability - Patient Data Vitals - Most Recent: Last Vital Signs Temp 97.8 F 08/24/19 00:00 Pulse 84 08/24/19 03:25 Resp 18 08/24/19 00:00 BP 142/71 H 08/24/19 00:00 Pulse Ox 92 L 08/24/19 00:00 Weight - Most Recent: 110.404 kg I&O - Last 24 Hours: Intake & Output 08/23/19 08/24/19 08/24/19 22:59 06:59 14:59 Intake Total 250 Balance 250 Lab Results Last 24 Hours: Laboratory Results - last 24 hr 08/24/19 Range/Units 06:35 PT 32.4 H (8.7-11.1) INR 3.38 H (0.89-1.13) Howard Results Last 24 Hours: Microbiology 08/21/19 18:15 Aerobic Blood Culture - Preliminary Blood - Venous NO GROWTH AFTER 2 DAYS Anaerobic Blood Culture - Preliminary NO GROWTH AFTER 2 DAYS 08/21/19 18:20 Aerobic Blood Culture - Preliminary Blood - Venous - Lab Draw NO GROWTH AFTER 2 DAYS Anaerobic Blood Culture - Preliminary NO GROWTH AFTER 2 DAYS 08/21/19 20:30 Gram Stain - Final Sputum - Expectorated Sputum Culture - Final NORMAL RESPIRATORY [facility] 2 DAYS Med Orders - Current: Current Medications Acetaminophen (Tylenol Arthritis Pain) 650 mg PO Q8H PRN PRN Reason: Shortness of Breath Last Admin: 08/23/19 18:29 Dose: 650 mg Benzonatate (Tessalon Perles) 200 mg PO TID [facility] Last Admin: 08/23/19 20:21 Dose: 200 mg Budesonide (Pulmicort) 0.5 mg INH TIDRT [facility] Last Admin: 08/24/19 06:37 Dose: 0.5 mg Celecoxib (Celebrex) 100 mg PO DAILY [facility] Last Admin: 08/23/19 10:03 Dose: 100 mg Docusate Sodium (Dok) 500 mg PO BEDTIME [facility] Last Admin: 08/23/19 20:20 Dose: 500 mg Fluticasone Propionate (Flonase) 0 gm NASBOTH DAILY [facility] Last Admin: 08/23/19 10:05 Dose: 2 spray Furosemide (Lasix) 20 mg PO DAILY [facility] Last Admin: 08/23/19 10:04 Dose: 20 mg Guaifenesin/Codeine Phosphate (Robitussin Ac) 10 ml PO Q6H PRN PRN Reason: Cough Last Admin: 08/24/19 04:22 Dose: 10 ml Azithromycin 500 mg/ Sodium (Chloride) 250 mls @ 250 mls/hr IV Q24H [facility] Last Admin: 08/23/19 18:29 Dose: 250 mls/hr Ceftriaxone Sodium 1 gm/ (Sodium Chloride) 50 mls @ 200 mls/hr IV Q24H [facility] Last Admin: 08/23/19 19:49 Dose: 200 mls/hr Lactobacillus Rhamnosus (Culturelle) 1 cap PO DAILY [facility] Last Admin: 08/23/19 10:03 Dose: 1 cap Levalbuterol HCl (Xopenex) 1.25 mg NEB Q4H PRN PRN Reason: Wheezing Last Admin: 08/24/19 03:26 Dose: 1.25 mg Methylprednisolone Sodium Succinate (Solu-Medrol) 40 mg IVPUSH Q8H [facility] Montelukast Sodium (Singulair) 10 mg PO BEDTIME [facility] Last Admin: 08/23/19 20:21 Dose: 10 mg Multivitamins/Minerals/Vitamin C (Tab-A-Tiffanie) 1 tab PO DAILY [facility] Last Admin: 08/23/19 10:03 Dose: 1 tab Non-Formulary Medication (Estradiol [Estrace 0.01% Vaginal Crm]) 1 gram VAG ASDIRECTED [facility] Pantoprazole Sodium (Protonix) 40 mg PO ACBREAKFAST [facility] Last Admin: 08/24/19 06:37 Dose: 40 mg Levocetirizine 5 Mg (Tab*Pt Own Med*) 0 each PO DAILY [facility] Last Admin: 08/23/19 10:06 Dose: 1 each (Melatonin [ Melatonin] 5 Mg)*Pt Own* 0 each PO BEDTIME [facility] Last Admin: 08/23/19 20:20 Dose: 1 each (Simethicone [Gas Relief] 125 Mg)*Pt Own Med* 0 each PO ASDIRECTED PRN PRN Reason: GAS Last Admin: 08/23/19 20:52 Dose: 1 each Betamethasone Dipropionate 0.05% Crm 15 Gm Tube*Pt Own Med* 0 each TOP BID [facility] Last Admin: 08/23/19 20:24 Dose: Not Given Clobetasol 0.05% Crm 45 Gm Tube*Pt Own Med* 0 each TOP BID [facility] Last Admin: 08/23/19 20:24 Dose: Not Given Senna/Docusate Sodium (Senna Plus) 1 tab PO BID PRN PRN Reason: Constipation Last Admin: 08/23/19 20:00 Dose: 1 tab Sodium Chloride (Saline Flush) 10 ml FLUSH ASDIRECTED PRN PRN Reason: Keep Vein Open Last Admin: 08/24/19 03:18 Dose: 10 ml Spironolactone (Aldactone) 25 mg PO BID [facility] Last Admin: 08/23/19 20:20 Dose: 25 mg Verapamil HCl (Covera-Hs) 180 mg PO BEDTIME [facility] Last Admin: 08/23/19 20:20 Dose: 180 mg Warfarin Sodium (Coumadin Sliding Scale) 1 each PO 1600 [facility] Discontinued Medications Albuterol/Ipratropium (Duoneb 3.0-0.5 Mg/3 Ml) 3 ml NEB QIDRT [facility] Last Admin: 08/22/19 15:03 Dose: 3 ml Budesonide (Pulmicort) 0.5 mg INH TIDRT [facility] Celecoxib (Celebrex) 100 mg PO ONETIME ONE Stop: 08/22/19 11:46 Last Admin: 08/22/19 12:10 Dose: 100 mg Clobetasol Propionate (Clobetasol Propionate 0.05%) 0 gm TOP BID [facility] Docusate Sodium (Colace) 200 mg PO ONETIME ONE Stop: 08/22/19 00:30 Last Admin: 08/22/19 01:10 Dose: 200 mg Docusate Sodium (Dok) 500 mg PO DAILY [facility] Docusate Sodium (Dok) 500 mg PO ONETIME ONE Stop: 08/22/19 11:46 Last Admin: 08/22/19 13:12 Dose: Not Given Docusate Sodium (Dok) 500 mg PO BEDTIME [facility] Fluticasone Propionate (Flonase) 0 gm NASBOTH ONETIME ONE Stop: 08/22/19 11:46 Last Admin: 08/22/19 12:11 Dose: 2 spray Furosemide (Lasix) 20 mg PO ONETIME ONE Stop: 08/22/19 11:46 Last Admin: 08/22/19 12:11 Dose: 20 mg Guaifenesin/Phenylephrine HCl (Robitussin Dm) 10 ml PO Q4H PRN PRN Reason: Cough Last Admin: 08/22/19 16:41 Dose: 10 ml Levalbuterol HCl (Xopenex) 1.25 mg NEB Q4H [facility] Last Admin: 08/23/19 10:42 Dose: Not Given Melatonin (Melatonin) 6 mg PO NOW STA Stop: 08/22/19 00:29 Last Admin: 08/22/19 01:09 Dose: 6 mg Methylprednisolone Sodium Succinate (Solu-Medrol) 125 mg IVPUSH Q8H [facility] Last Admin: 08/23/19 12:22 Dose: 125 mg Methylprednisolone Sodium Succinate (Solu-Medrol) 125 mg IVPUSH Q8H [facility] Methylprednisolone Sodium Succinate (Solu-Medrol) 125 mg IVPUSH Q8H [facility] Last Admin: 08/24/19 03:13 Dose: 125 mg Montelukast Sodium (Singulair) 10 mg PO ONETIME ONE Stop: 08/22/19 00:28 Last Admin: 08/22/19 01:09 Dose: 10 mg Montelukast Sodium (Singulair) 10 mg PO DAILY [facility] Montelukast Sodium (Singulair) 10 mg PO ONETIME ONE Stop: 08/22/19 11:46 Last Admin: 08/22/19 12:11 Dose: 10 mg Multivitamins/Minerals/Vitamin C (Tab-A-Tiffanie) 1 tab PO ONETIME ONE Stop: 08/22/19 11:46 Last Admin: 08/22/19 12:11 Dose: 1 tab Pantoprazole Sodium (Protonix) 40 mg PO ONETIME ONE Stop: 08/22/19 12:01 Last Admin: 08/22/19 12:10 Dose: 40 mg Simethicone (Simethicone) 120 mg PO NOW ST[facility] Stop: 08/22/19 00:29 Last Admin: 08/22/19 01:09 Dose: 120 mg Spironolactone (Aldactone) 25 mg PO TID [facility] Last Admin: 08/22/19 14:14 Dose: 25 mg Verapamil HCl (Covera-Hs) 180 mg PO DAILY [facility] Last Admin: 02/15/20 13:12 Dose: Not Given Verapamil HCl (Covera-Hs) 180 mg PO DAILY [facility] Verapamil HCl (Covera-Hs) 180 mg PO ONETIME ONE Stop: 08/22/19 11:46 Last Admin: 08/22/19 12:16 Dose: Not Given Warfarin Sodium (Coumadin) 3 mg PO ONETIME ONE Stop: 08/22/19 00:27 Last Admin: 08/22/19 01:08 Dose: 3 mg Warfarin Sodium (Coumadin) 3 mg PO DAILY@1600 [facility] - Exam General: Alert Neck: Supple Lungs: Crackles, Rales, Rhonchi Cardiovascular: Tachycardia Extremities: Pedal Edema Psy/Mental Status: Alert, Anxious Sepsis Event Note - Evaluation Sepsis Screening Result: No Definite Risk - Focused Exam Vital Signs: Vital Signs Temp Pulse Resp BP Pulse Ox 08/24/19 03:25 84 08/24/19 00:00 97.8 F 79 18 142/71 H 92 L Date Exam was Performed: 08/24/19 Time Exam was Performed: 08:33 - Problem List & Annotations (1) CAP (community acquired pneumonia) SNOMED Code(s): 764421708 Code(s): J18.9 - PNEUMONIA, UNSPECIFIED ORGANISM Status: Acute Current Visit: Yes Qualifiers: Lung location: unspecified part of lung (2) Influenza A SNOMED Code(s): 079835284 Code(s): J10.1 - FLU DUE TO OTH IDENT INFLUENZA VIRUS W OTH RESP MANIFEST Status: Acute Current Visit: Yes (3) Pulmonary fibrosis SNOMED Code(s): 57369936 Code(s): J84.10 - PULMONARY FIBROSIS, UNSPECIFIED Status: Acute Current Visit: Yes (4) Obesity SNOMED Code(s): 584509803, 621278448 Code(s): E66.9 - OBESITY, UNSPECIFIED Status: Acute Current Visit: Yes Qualifiers: Obesity type: due to excess calories (5) GEOVANI (obstructive sleep apnea) SNOMED Code(s): 83919462 Code(s): G47.33 - OBSTRUCTIVE SLEEP APNEA (ADULT) (PEDIATRIC) Status: Acute Current Visit: Yes (6) May-Thurner syndrome SNOMED Code(s): 788532936 Code(s): I87.1 - COMPRESSION OF VEIN Status: Acute Current Visit: Yes (7) Chronic back pain SNOMED Code(s): 148045180 Code(s): M54.9 - DORSALGIA, UNSPECIFIED; G89.29 - OTHER CHRONIC PAIN Status : Acute Current Visit: Yes Qualifiers: Back pain location: low back pain - Problem List Review Problem List Initiated/Reviewed/Updated: Yes - My Orders Last 24 Hours: My Active Orders 08/23/19 09:00 Celecoxib [CeleBREX] 100 mg PO DAILY Fluticasone Propionate [Flonase] 0 gm NASBOTH DAILY Furosemide [Lasix] 20 mg PO DAILY Multivitamins [Tab-A-Tiffanie] 1 tab PO DAILY 08/23/19 09:11 levalbuterol HCL [Xopenex] 1.25 mg NEB Q4H PRN 08/23/19 09:12 Docusate Sodium/Sennosides [Senna Plus] 1 tab PO BID PRN 08/24/19 08:32 Chest wo Cont [CT] Routine 08/24/19 08:33 Incentive Spirometry [RT Incentive Spirometry] [RC] Q4HWA 08/24/19 08:45 methylPREDNISolone Sod Succ [Solu-MEDROL] 40 mg IVPUSH Q8H - Plan Plan:: Obtain CT chest w/o contrast. Reduce Solumedrol to 40 mg bid
[2019-08-24] MEDS: Benzonatate 100 MG Cap PO SCH ×3 (08:49→21:03)
[2019-08-24] MEDS: Spironolactone 25 MG Tab PO SCH ×2 (08:49→21:04)
[2019-08-24] MEDS: Celecoxib 100 MG Cap PO SCH (08:49)
[2019-08-24] MEDS: Lactobacillus Rhamnosus GG (Probiotic) Cap PO SCH (08:49)
[2019-08-24] MEDS: Furosemide 20 MG Tab PO SCH (08:50)
[2019-08-24] MEDS: Fluticasone Propionate Nasal Spray 16 GM Bottle NASBOTH SCH (08:50)
[2019-08-24] MEDS: LEVOCETIRIZINE 5 MG PO SCH (08:52)
[2019-08-24] MEDS: Multivitamin Tab PO SCH (08:53)
[2019-08-24] MEDS: CLOBETASOL 0.05% TOP SCH ×2 (08:56→20:57)
[2019-08-24] MEDS: BETAMETHASONE DIPROPIONATE 0.05% TOP SCH ×2 (08:57→20:58)
[2019-08-24] MEDS: methylPREDNISolone Sodium Succinate 40 MG/1 ML SDV IVPUSH SCH ×2 (11:04→20:59)
[2019-08-24] MEDS ORDERED: Azithromycin 500 MG in Sodium Chloride 0.9% 250 ML IV SCH (18:00)
[2019-08-24] MEDS ORDERED: cefTRIAXone 1 GM Vial IVPUSH SCH (20:00)
[2019-08-24] MEDS: Docusate Sodium 250 MG Cap PO SCH (21:02)
[2019-08-24] MEDS: Montelukast 10 MG Tab PO SCH (21:05)
[2019-08-24] MEDS: Verapamil 180 MG Tab.ER PO SCH (21:05)
[2019-08-24] MEDS: Acetaminophen 650 MG Tab.ER PO PRN (21:24)
[2019-08-25] MEDS: Codeine/guaiFENesin 100-10 MG/5 ML Syrup 5 ML Cup PO PRN (00:12)
[2019-08-25] MEDS: methylPREDNISolone Sodium Succinate 40 MG/1 ML SDV IVPUSH SCH ×2 (03:51→14:32)
[2019-08-25] MEDS: Sodium Chloride 0.9% 10 ML Syringe FLUSH PRN ×2 (03:54→04:13)
[2019-08-25] MEDS: Acetaminophen 650 MG Tab.ER PO PRN (04:49)
[2019-08-25] MEDS: Budesonide 0.5 MG/2 ML Neb Susp INH SCH (06:42)
[2019-08-25] MEDS: Pantoprazole 40 MG Tab.CR PO SCH (06:42)
[2019-08-25] MEDS: Benzonatate 100 MG Cap PO SCH (08:16)
[2019-08-25] MEDS: Spironolactone 25 MG Tab PO SCH (08:17)
[2019-08-25] MEDS: BETAMETHASONE DIPROPIONATE 0.05% TOP SCH (08:17)
[2019-08-25] MEDS: CLOBETASOL 0.05% TOP SCH (08:17)
[2019-08-25] MEDS: Furosemide 20 MG Tab PO SCH (08:17)
[2019-08-25] MEDS: Lactobacillus Rhamnosus GG (Probiotic) Cap PO SCH (08:17)
[2019-08-25] MEDS: Multivitamin Tab PO SCH (08:17)
[2019-08-25] MEDS: Fluticasone Propionate Nasal Spray 16 GM Bottle NASBOTH SCH (08:17)
[2019-08-25] MEDS: Celecoxib 100 MG Cap PO SCH (08:17)
[2019-08-25] MEDS: LEVOCETIRIZINE 5 MG PO SCH (08:18)
--- NOTE | 2019-08-25 13:09 | DISCH ---
DISCHARGE DATE: 08/25/2019 REASON FOR ADMISSION: 1. Community-acquired pneumonia. 2. Influenza. 3. Pulmonary fibrosis. 4. Anxiety and depression. DISCHARGE DIAGNOSES: 1. Post-influenza cough syndrome. 2. Pulmonary fibrosis exacerbation. 3. History of pneumonia. 4. Depression and anxiety. 5. May-Thurner syndrome. 6. Long-term anticoagulation. BRIEF HISTORY AND HOSPITAL COURSE: This is a 68-year-old female who had influenza and was sent from the clinic with continued cough and hypoxia, needed oxygen the first day. X-ray which was done in the clinic and repeat here showed possible pneumonia in the right lower lobe. She was placed on Rocephin and azithromycin. After 3 days, a CT of the chest was performed, which showed negative for PE or pneumonia. The antibiotics were discontinued. She was placed on Solu-Medrol upon admission, along with Tessalon Perles and Robitussin and Codeine, and was deemed ready for discharge on 08/25/2019. I will discharge on the same medications. I did tell her to complete the course of oral azithromycin that she has at home and also the course of prednisone, and I will send a prescription for Tessalon Perles. She should see provider, Crista Caballero NP, at the clinic on Saturday. I spent more than 35 minutes in the discharge of the patient. /[id number] ANA/ALEX
[2019-08-25] MEDS ORDERED: Warfarin 3 MG Tab PO ONE (16:00)
== END 2019-08-25 13:30 | disposition home or self-care (01) | DRG 194 ==
LOC: FB.MS 16:46
PROVIDERS: ADMIT Family Medicine; ATTEND Family Medicine
DX: J10.00 Influenza due to other identified influenza virus with unspecified type of pneumonia (principal); I87.1 Compression of vein; G47.33 Obstructive sleep apnea (adult) (pediatric); F32.9 Major depressive disorder, single episode, unspecified; E66.09 Other obesity due to excess calories; M54.5 Low back pain; G89.29 Other chronic pain; J84.10 Pulmonary fibrosis, unspecified; Z79.01 Long term (current) use of anticoagulants; Z99.81 Dependence on supplemental oxygen; Z68.38 Body mass index [BMI] 38.0-38.9, adult
CPT/HCPCS: 36415; 71046; 71250; 80048; 80053; 83880; 85025; 85610; 87040; 87070; 87205; 94150; 94640; A9270-GY; J0456; J0696; J2920; J2930; J7050; J7612-GY; J7620-GY